=== PATIENT | female | born 1970 | race Caucasian/White ===

== ENCOUNTER 2023-06-09 11:33 | Emergency (ER) | payer OTHER ==
[~2023-06-09] VITALS: Ht 152.4 cm; Wt 68.0 kg
[2023-06-09 11:36] VITALS: O2SAT 100
[2023-06-09 12:31] LABS: ALANINE AMINOTRANSFERASE 26 IU/L (10-49); ALBUMIN 4.8 g/dL (3.2-4.8); ASPARTATE AMINOTRANSFERASE 22 IU/L (<34); BILIRUBIN TOTAL 0.6 mg/dL (0.1-1.0); CALCIUM 9.5 mg/dL (8.7-10.4); CARBON DIOXIDE 27 mEq/L (21-32); CHLORIDE 109 mEq/L (98-107); CREATININE 0.6 mg/dL (0.6-1.0); GLUCOSE 91 mg/dL (70-105); POTASSIUM 3.6 mEq/L (3.5-5.1); PROTEIN TOTAL 7.9 g/dL (6.0-8.3); SODIUM 142 mEq/L (136-145); UREA NITROGEN BLOOD 17 mg/dL (9-23)
[2023-06-09 12:36] LABS: HCG SCREEN NEGATIVE
[2023-06-09 12:37] LABS: BASOPHILS % 0.6 % (0.0-2.0); EOSINOPHILS % 2.6 % (0.0-5.0); HEMATOCRIT. 40.2 % (36.0-48.0); HEMOGLOBIN. 13.9 g/dL (12.0-16.0); LYMPHOCYTES % 24.2 % (20.0-50.0); MEAN CORPUSCULAR HEMOGLOBIN 33.4 pg (28.0-32.0); MEAN CORPUSCULAR HGB CONC 34.6 g/dL (31.0-37.0); MEAN CORPUSCULAR VOLUME 96.4 fL (81.0-99.0); MEAN PLATELET VOLUME 9.2 fl (7.4-10.4); MONOCYTES % 6.6 % (2.0-8.0); PLATELET 234 x1000/uL (130-400); RED BLOOD CELL COUNT 4.17 mill/uL (4.2-5.4); RED CELL DISTRIBUTION WIDTH 12.4 % (11.6-14.6); WHITE BLOOD COUNT 6.1 x1000/uL (4.5-11.0)
[2023-06-09 12:39] LABS: TROPONIN I HIGH SENSITIVITY < 4 ng/L (3.0-34)
[2023-06-09] MEDS: KETOROLAC 30MG/ML VIAL IV ONE (12:48)
[2023-06-09] MEDS: METOCLOPRAMIDE HCL 10MG/2ML VIAL IV ONE (12:50)
[2023-06-09] MEDS: DIPHENHYDRAMINE 50MG/ML VIAL IV ONE (12:50)
[2023-06-09 14:10] VITALS: BP 134/75; PULSE 65; RESP 17; TEMP 98.2
== END 2023-06-09 14:41 | disposition home or self-care (01) ==
LOC: ER 12:37
DX: I10 Essential (primary) hypertension (principal)
CPT/HCPCS: 99285; 96374; 70450; 71045; 96375; 80053; 81025; 84703; 83880; 85025; 84484; 36415; 93005; J1200; J1885; J2765